=== PATIENT | female | born 2000 | race Caucasian/White ===

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

== ENCOUNTER → 2022-02-18 | Outpatient (CLI) | payer OTHER ==
[~2022-02-18] MED LIST changes: +Budeprion Xl300 MG PO
== END | disposition home or self-care (01) ==
LOC: LAB 17:40 → LAB SHORT 17:40
DX: R30.0 Dysuria (principal)
CPT/HCPCS: 87077; 87086; 87186